=== PATIENT | male | born 1950 | race Caucasian/White ===

== ENCOUNTER 2022-04-25 13:29 | Emergency (ER) | payer MEDICARE, SELFPAY ==
[2022-04-25 13:39] VITALS: BP 116/80; PULSE 99; RESP 16; TEMP 35.9; O2SAT 99
--- NOTE | 2022-04-25 13:56 | ED.SKABFB ---
HPI - Skin/Abscess/Foreign Bdy General Chief complaint: Skin/Abscess/Foreign Body Stated complaint: left thumb laceration Time Seen by Provider: 04/25/22 13:59 Source: patient and RN notes reviewed Mode of arrival: ambulatory Limitations: no limitations History of Present Illness HPI narrative: 71 year old male presents with concern for laceration between his first and second digits of his left hand. He reports prior to arrival he cut the area using scissors. He denies any decreased sensation, strength, range of motion in his hand or digits. He is not up-to-date on his tetanus vaccination MD complaint: laceration Related Data Home Medications Medication Instructions Recorded Confirmed albuterol sulfate 90 mcg/actuation 1 puff inhalation Q4H PRN sob 07/03/19 04/25/22 aerosol inhaler (ProAir HFA) meloxicam 15 mg tablet (Mobic) 15 mg PO DAILY PRN Pain 07/16/19 04/25/22 Allergies Allergy/AdvReac Type Severity Reaction Status Date / Time No Known Allergies Allergy Verified 04/25/22 13:52 Review of Systems Review of Systems: CONSTITUTIONAL: Denies malaise, chills, sweats, or fever. SKIN: Reports laceration between the 1st and 2nd digits of the left hand MUSCULOSKELETAL: Denies muscle skeletal pain NEUROLOGIC: Denies numbness, weakness All systems reviewed & are unremarkable except as noted in HPI and below PMFSH Past Medical History Medical History (Updated 04/25/22 @ 14:14 by Jennifer De Paz NP) History of torn meniscus of right knee Surgical History Surgical History H/O cataract extraction H/O spinal fusion History of knee replacement Family History Family History Mother Acute myocardial infarction Family history of malignant neoplasm of ovary Diabetes mellitus Hypertension Family history of cardiovascular disease Family history of malignant neoplasm of uterus Family history of coronary artery disease Sibling Diabetes mellitus Asthma Acute myocardial infarction, Onset Age: 50 Family history of lymphoma Family history of coronary artery disease Father Cerebrovascular accident Social History Social History Smoking status: Never smoker Alcohol intake: current Comments At time of signature, agree with nursing past medical, surgical, social and family history. There is no relevant family history pertinent to the presenting complaint Exam Narrative: GENERAL: Well-appearing, well-nourished, and in no acute distress. HEAD: Normocephalic EYES: PERRLA, conjunctivae clear NECK: Supple. CHEST: Speaks in full sentences. No respiratory distress. HEART: Regular rate and rhythm. Normal and equal peripheral pulses. EXTREMITIES: Left hand and digits of hand have normal strength and sensation. 5/5 strength with digit flexion, extension. Range of motion normal. Normal digital cascade with flexion of fingers, median, ulnar and radial nerve intact. Normal sensation of each side of finger. Normal thumb opposition. Good capillary refill and radial pulse. Distal capillary refill less than 3 seconds. Patient is right/left hand dominant SKIN: Warn, dry, pink. 1 cm simple linear laceration through the dermis, not into the subcutaneous tissue noted in the webbing between the 1st and 2nd digits without surrounding erythema, edema, induration or drainage NEURO: Alert and oriented x3. PSYCH: Normal mood and affect Course Course Emergency Course: Discussed closure options with patient sutures versus Steri-Strips and glue, benefits and risks of both. Patient understands that using glue he will have to be careful with his hand, he prefers to use glue. Patient is aware of diagnosis, understands and agrees to treatment plan. Anticipatory guidance given. Patient agrees to follow-up as directed and is aware of reasons to seek care at the emergency de
[2022-04-25] MEDS: TETANUS,DIPHTHERIA,AC PERTUSSIS ADULT (0.5 ML) BOOSTRIX IM (14:20)
== END 2022-04-25 14:25 | disposition home or self-care (01) ==
PROVIDERS: Emergency Provider Nurse Practitioner; PCP Student in an Organized Health Care Education/Training Program
DX: S61.012A Laceration without foreign body of left thumb without damage to nail, initial encounter (principal); Z79.1 Long term (current) use of non-steroidal anti-inflammatories (NSAID); Z23 Encounter for immunization; W26.8XXA Contact with other sharp object(s), not elsewhere classified, initial encounter
CPT/HCPCS: 12001; 90471; 90715; 99212; G0463

== ENCOUNTER → 2022-09-16 08:40 | Outpatient (CLI) | payer MEDICARE, SELFPAY ==
--- NOTE | ~2022-09-16 | US_ITS ---
Ultrasound of the Abdominal Aorta INDICATION: Abdominal aortic aneurysm TECHNIQUE: Grayscale, color Doppler, and pulsed Doppler images of the aorta and common iliac arteries were obtained. COMPARISON: None. FINDINGS: Maximum vascular dimensions are as follows: Proximal aorta: 2.7 cm Mid aorta: 2.8 cm Distal aorta: 2.7 cm Right common iliac artery: 1.4 cm Left common iliac artery: 1 4 cm There is no evidence of abdominal aortic aneurysm. IMPRESSION: No abdominal aortic aneurysm evident. Reviewed, dictated and finalized at location M.
== END ==
PROVIDERS: PCP Student in an Organized Health Care Education/Training Program; Visit Provider Student in an Organized Health Care Education/Training Program
DX: Z13.6 Encounter for screening for cardiovascular disorders (principal)
CPT/HCPCS: 76706

== ENCOUNTER 2022-10-10 14:50 | Emergency (ER) | payer MEDICARE, SELFPAY ==
--- NOTE | ~2022-10-10 | XR_ITS ---
EXAM: XR heel RT min 2V DATE: 10/10/2022 15:31 HISTORY: PAIN WHILE WALKING . COMPARISON: None available. FINDINGS: Normal mineralization. No fracture or dislocation. No lytic or blastic lesion. Scattered d egenerative changes. Achilles and plantar enthesopathy. Prominent os trigonum, with early pseudoarthr osis, which can be a source of chronic posterior ankle pain. No erosion or periosteal change. Soft ti ssues within normal limits. IMPRESSION: No acute osseous finding in the right calcaneus. Chronic changes detailed above. Reviewed, dictated and finalized at location K. IMPRESSION: No acute osseous finding in the right calcaneus. Chronic changes de tailed above.
[2022-10-10 15:00] VITALS: BP 150/83; PULSE 84; RESP 16; TEMP 36.8; O2SAT 98
--- NOTE | 2022-10-10 15:05 | ED.EXTPRO ---
HPI - Extremity Problem General Chief complaint: Extremity Injury, Lower Stated complaint: Right Foot /Left Calf Pain Time Seen by Provider: 10/10/22 15:05 Source: patient Mode of arrival: ambulatory Limitations: no limitations History of Present Illness HPI Narrative: Allan is a 71-year-old male patient presenting to clinic today with complaints of right heel pain x2 weeks. He reports when he goes to stand up in the morning he has a sharp pain in the heel. Also states that he has had some left calf swelling and discomfort with dorsal flexion to the back of his calf. He states he has been recently traveling-went to [place] in a car for 5 hours and then flew home which was approximately 50 minute flight. Denies any tenderness to palpation or erythema. Does have varicose veins to the left lower extremity. Denies any shortness of breath, chest pain, confusion, headache, or dizziness. Related Data Home Medications Medication Instructions Recorded Confirmed meloxicam 15 mg tablet (Mobic) 15 mg PO DAILY PRN Pain 07/16/19 04/25/22 Zinc 10/10/22 ascorbate sodium (vitamin C) 10/10/22 aspirin 81 mg tablet 81 mg PO DAILY 10/10/22 10/10/22 cholecalciferol (vitamin D3) 10/10/22 finasteride 5 mg tablet mg 10/10/22 pantoprazole 20 mg tablet,delayed mg PO 10/10/22 release tamsulosin 0.4 mg capsule mg PO 10/10/22 valsartan 160 mg tablet mg 10/10/22 Allergies Allergy/AdvReac Type Severity Reaction Status Date / Time No Known Allergies Allergy Verified 10/10/22 14:57 Review of Systems Review of Systems: Pertinent positives per HPI. Patient denies any fever, chills, rash, headache, visual changes, dizziness, cough, runny nose, sore throat, shortness of breath, chest pain, palpitations, nausea, vomiting, diarrhea, constipation, abdominal pain, or any urinary issues. [facility] Past Medical History Medical History (Updated 10/10/22 @ 16:01 by Leonidas Beard APRN) History of torn meniscus of right knee Surgical History Surgical History H/O cataract extraction H/O spinal fusion History of knee replacement Family History Family History Mother Acute myocardial infarction Family history of malignant neoplasm of ovary Diabetes mellitus Hypertension Family history of cardiovascular disease Family history of malignant neoplasm of uterus Family history of coronary artery disease Sibling Diabetes mellitus Asthma Acute myocardial infarction, Onset Age: 50 Family history of lymphoma Family history of coronary artery disease Father Cerebrovascular accident Social History Social History Smoking status: Never smoker Alcohol intake: current Comments At the time of my signature, I reviewed and agree with the nursing past medical, surgical, social, and family history. There is no relevant family history pertinent to the patient complaint. Exam Narrative: General: Well-developed, well nourished, in no apparent distress Head: Normocephalic, atraumatic. Cardio: Regular rate and rhythm, s1 and s2 normal, no murmur appreciated. Resp: Clear to auscultation bilaterally, no rhonchi, rales, wheezing or rubs. Musculoskeletal: No deformity, left lower extremity with varicose veins, left calf size 1 in larger than right calf, tender to palpation of the left calf with dorsal flexion without erythema or palpable knotting, no pain with ambulation, tender to palpation to the posterior arch anterior heel of the right foot with increase in pain with dorsal flexion, grossly normal range of motion, muscle strength strong and equal, peripheral pulse strong, no pitting edema, no cyanosis, normal gait and station Course Course Emergency Course: Portions of this record may have been created with voice recognition software.
--- NOTE | 2022-10-10 15:52 | PC.NURSE ---
distribution operations manager in to do right heel injection.
--- NOTE | 2022-10-10 15:53 | PC.NURSE ---
lidocaine and kenalog removed from pyxis per cheri harrison np.
== END 2022-10-10 16:14 | disposition home or self-care (01) ==
PROVIDERS: Emergency Provider Nurse Practitioner Family; PCP Student in an Organized Health Care Education/Training Program
DX: M72.2 Plantar fascial fibromatosis (principal); M77.31 Calcaneal spur, right foot; M79.662 Pain in left lower leg
CPT/HCPCS: 20550; 73650; 99213; G0463; J3301

== ENCOUNTER 2023-09-14 12:02 | Emergency (ER) | payer MEDICARE, SELFPAY ==
--- NOTE | ~2023-09-14 | XR_ITS ---
XR lumbar spine 2-3V 09/14/2023 13:58 Indication: Low back pain. Previous lumbar spine fusion. Procedure: 3 views lumbar spine Comparison: No prior studies for comparison. Findings: Status post anterior fusion and discectomy at L4-5 and L5-S1. There is facet hypertrophy at L3-4 through L5-S1. There is advanced degenerative disc disease at T11-12 through L3-4. No acute fra cture or traumatic malalignment. Mild dextrocurvature of the lumbar spine. Impression: 1: Severe lumbar spondylosis with fusion and discectomy at L4-5 and L5-S1. Reviewed, dictated and finalized at location B. Impression: 1: Severe lumbar spondylosis with fusion and discectomy at L4-5 and L5-S1.
--- NOTE | ~2023-09-14 | XR_ITS ---
XR hip LT 2V w AP pelvis 09/14/2023 13:58 Indication: Left hip pain Procedure: AP pelvis and 2 views left hip Comparison: No prior studies for comparison. Findings: There are surgical fusion changes at L4-5 and L5-S1. No fracture or traumatic malalignment. Pelvic rings are intact. Sacral foramen are symmetric. There is a sclerotic lesion of the right iliu m, likely benign bone island. Impression: 1: No acute abnormality of the left hip. Reviewed, dictated and finalized at location B. Impression: 1: No acute abnormality of the left hip.
[2023-09-14 12:17] VITALS: BP 133/75; PULSE 95; RESP 16; TEMP 37.2; O2SAT 98
--- NOTE | 2023-09-14 13:34 | ED.GENADULT ---
HPI - General Adult General Chief complaint: Back Pain/Injury Stated complaint: lower back pain from fall Source: patient Mode of arrival: ambulatory Limitations: no limitations History of Present Illness HPI narrative: Patient presents for evaluation of left lower back pain for the last 2 weeks. He indicates he was hiking and twisted his ankle in the process. He fell and landed on the left side of his body. His pain in the low back shows started shortly thereafter. He states the pain is constant, 7/10 in severity, without descriptive quality. He denies radicular component but he has paresthesias in his left anterolateral thigh. He takes meloxicam for chronic right knee pain. It has not provided him with much relief. He is also on physical therapy at the present time for his right knee. The physical therapist has also been doing some work for his low back but that has not helped. He has a history of lumbosacral fusion. He is planning on having a right knee replacement in November of this year. Related Data Home Medications Medication Instructions Recorded Confirmed meloxicam 15 mg tablet (Mobic) 15 mg PO DAILY PRN Pain 07/16/19 04/25/22 ascorbate sodium (vitamin C) 10/10/22 aspirin 81 mg tablet 81 mg PO DAILY 10/10/22 10/10/22 cholecalciferol (vitamin D3) 10/10/22 finasteride 5 mg tablet mg 10/10/22 pantoprazole 20 mg tablet,delayed 20 mg PO DAILY 10/10/22 release tamsulosin 0.4 mg capsule 0.4 mg PO DAILY 10/10/22 amlodipine 5 mg tablet mg 09/14/23 hydrochlorothiazide 25 mg tablet mg 09/14/23 rosuvastatin 5 mg tablet 5 mg PO DAILY 09/14/23 09/14/23 sertraline 50 mg tablet 50 mg PO DAILY 09/14/23 09/14/23 valsartan 320 mg tablet 320 mg PO DAILY 09/14/23 09/14/23 Allergies Allergy/AdvReac Type Severity Reaction Status Date / Time No Known Allergies Allergy Verified 09/14/23 12:09 Review of Systems Review of Systems: CONSTITUTIONAL: Denies fever, chills, or sweats. EYES: Denies visual changes, redness, or discharge. ENT: Denies rhinorrhea, congestion, sore throat, or otalgia. CARDIOVASCULAR: Denies chest pain, palpitations, or edema. RESPIRATORY: Denies cough or dyspnea. GASTROINTESTINAL: Denies abdominal pain, nausea, vomiting, or diarrhea. GENITOURINARY: Denies dysuria or hematuria. SKIN: Denies rash or itching. MUSCULOSKELETAL: Reports left lower back pain. NEUROLOGIC: Denies headache, numbness, dizziness, or weakness. PSYCHIATRIC: Denies anxiety or depression. [facility] Past Medical History Medical History History of torn meniscus of right knee Hypertension Surgical History Surgical History H/O cataract extraction H/O spinal fusion History of knee replacement Family History Family History Mother Acute myocardial infarction Family history of malignant neoplasm of ovary Diabetes mellitus Hypertension Family history of cardiovascular disease Family history of malignant neoplasm of uterus Family history of coronary artery disease Sibling Diabetes mellitus Asthma Acute myocardial infarction, Onset Age: 50 Family history of lymphoma Family history of coronary artery disease Father Cerebrovascular accident Social History Social History Smoking status: Never smoker Alcohol intake: current Living arrangements: with family Gender identity (if verbalized by the patient): Male Spiritual care concerns: No Exam Narrative: GENERAL: Well-appearing, well-nourished, and in no acute distress. HEAD: Normocephalic, atraumatic. EYES: PERRLA and EOMI. ENT: Nares clear, no rhinorrhea or epistaxis. Mucous membranes moist. Oropharynx without tonsillar hypertrophy exudate or other lesions. Bilateral TMs pearly [place]uilera nonbulging NECK: Suppl
--- NOTE | 2023-09-14 14:15 | PC.NURSE ---
PT WAITING FOR XRAY RESULTS, NO CHANGE IN CONDITION.
== END 2023-09-14 14:37 | disposition home or self-care (01) ==
PROVIDERS: Emergency Provider Nurse Practitioner; PCP Student in an Organized Health Care Education/Training Program
DX: S39.012A Strain of muscle, fascia and tendon of lower back, initial encounter (principal); W19.XXXA Unspecified fall, initial encounter; Y93.01 Activity, walking, marching and hiking; I10 Essential (primary) hypertension; Z79.82 Long term (current) use of aspirin
CPT/HCPCS: 72100; 73502; 99214; G0463